=== PATIENT | female | born 1970 | race Caucasian/White ===

== ENCOUNTER 2017-03-19 02:34 | Emergency (ER) | payer MEDICAID ==
[~2017-03-19] VITALS: Ht 157.5 cm; Wt 69.0 kg
[2017-03-19] MEDS ORDERED: DIPHENHYDRAMINE 25MG CAPSULE PO ONE (04:45)
[2017-03-19] MEDS ORDERED: PREDNISONE 20MG TABLET PO ONE (04:45)
== END 2017-03-19 05:21 | disposition home or self-care (01) ==
LOC: ER 02:35
DX: T63.301A Toxic effect of unspecified spider venom, accidental (unintentional), initial encounter (principal); Y92.89 Other specified places as the place of occurrence of the external cause
CPT/HCPCS: 99283; J7512; Q0163